=== PATIENT | male | born 1940 | race Asian ===

== ENCOUNTER 2023-09-11 09:24 | Emergency (ER) | payer MEDICARE, OTHER, SELFPAY ==
[2023-09-11 09:36] VITALS: BP 161/63
[2023-09-11 10:00] VITALS: BP 154/71
--- NOTE | 2023-09-11 10:05 | ED.GENMED ---
History of Present Illness
General
Chief Complaint: Breathing Problem
Source: patient
Time Seen by Provider: 09/11/23 09:57
Travel History
Have you had any contact with someone who has COVID-19?: Unable to Answer
Do you have any symptoms of coronavirus? Fever > 100 degrees, chills, cough, shortness of breath, sore throat, loss of taste or smell, muscle aches, or headache?: Unable to Answer
History of Present Illness
History of Present Illness:
82-year-old male has had fatigue prior to and since a cardiac cath done. Cath was apparently done for this reason and for a heart murmur. Patient is told that catheterization was unremarkable. Today patient had some shortness of breath in
addition to the unusual fatigue he has been getting. Shortness of breath is resolved. No unusual chest pain or pleuritic chest pain. No fever cough
Past History
Past History
ED Past Medical History: GERD, HTN, Valvular disease, Hypothyroidism and Other (Gastric tumor)
ED Past Surgical History: Other (Hernia, gastric tumor)
Social History
Tobacco: Non-smoker
Living: alone
Phy Exam
Physical Exam
Physical Exam:
GENERAL: Alert and oriented in no apparent distress
EYE: Orbits normal.
NECK: Supple, mild ecchymosis to the right neck extending to the right upper sternal area
ENT: Pharynx without erythema
CARDIAC: Regular rate and rhythm with moderate midsystolic murmur
LUNGS: Clear breath sounds,normal
ABDOMEN: Soft, without focal tenderness or distention
NEUROLOGICAL: Alert and oriented , grossly non-focal
SKIN: Warm and dry, no rash or lesion, no discoloration, skin intact.
MUSCULOSKELETAL: No edema,no deformity.Good color
PSYCH: Normal and appropriate interaction.
Scores
Heart Failure Risk
Heart Failure Risk Score: Not Applicable
Course
Orders/Labs/Results
Orders:
Orders
09/11/23 09:40
Electrocardiogram (*1) Urgent
Reason for Study: Shortness of Breath
09/11/23 09:41
EKG- Treatment ONCE
09/11/23 10:04
Cardiac Monitoring- Treatment ONCE
IV Insert/Care/Rem.- Treatment PRN
CR Chest - 2 Views Urgent
Comment:
Reason For Exam: sob
Pulse Ox/cont/shift [RESP] Stat
Quantity: 1
09/11/23 10:09
CMP [Comprehensive Metabolic Panel] Urgent
Complete Blood Count/With Diff Urgent
Free T4 Urgent
NT-proBNP Urgent
TSH Reflex To Free T4 Urgent
Comment: ADD ON
Troponin I Urgent
09/11/23 12:09
CT Chest Pe Study Urgent
Comment:
Reason For Exam: Shortness of breath. Recent cardiac cath
09/11/23 12:10
Add On- LAB Urgent
Tests Added?: tsh reflex t4
09/11/23 12:11
EKG- Treatment ONCE
09/11/23 13:00
Electrocardiogram (*1) Stat
Reason for Study: Other
Other Reason for Exam: chest pain
09/11/23 13:33
Troponin I Urgent
Abnormal Lab Results
09/11/23
10:09
RBC 3.63 L 10^6/uL
(4.70-6.10)
Hct 35.7 L %
(39.0-52.0)
MCV 98.3 H fL
(80.0-94.0)
MCH 36.6 H pg
(27.0-31.0)
MCHC 37.3 H g/dL
(33.0-37.0)
Abs Immat Gran (auto) 0.1 H 10^3/uL
(0-0.05)
Immature Gran % 1.0 H %
(0-0.5)
BUN 59 H mg/dl
(9-20)
Glucose 115 H mg/dl
(70-99)
TSH (Reflex) 0.21 L uIU/ml
(0.47-4.68)
09/11/23 10:09
09/11/23 10:09
Vital Signs
Initial and Last Documented VS:
Initial Vital Signs
Temp Pulse Resp BP Pulse Ox
98.7 F 86 18 161/63 95
09/11/23 09:36 09/11/23 09:36 09/11/23 09:36 09/11/23 09:36 09/11/23 09:36
Last Documented Vital Signs
Temp Pulse Resp BP Pulse Ox
98.7 F 81 18 155/91 97
09/11/23 09:36 09/11/23 15:43 09/11/23 15:43 09/11/23 15:43 09/11/23 15:43
MDM/Problems Addressed
Differential Diagnosis Includes:
Fatigue prior and after cardiac cath. Per the patient this was done for the heart murmur. However today he had some transient shortness of breath that is resolved. Nothing on exam except for the murmur. Lungs are clear no respiratory distress
pulse ox is good EKG is stable workup in progress. Attempting to get the cardiac cath report from [place]
*Pulse Oximetry
Patient hypoxic: no
*EKG
Interpreted by ED Provider?: Yes
Interpretation: abnormal
Comparison EKG: changes noted
Heart Rate: 85
Rate: normal
Rhythm: sinus
[place]: left axis deviation
Interval: normal interval
QRS Pattern: left vent hypertrophy
Ischemia: non-specific ST changes
*Critical Care Note
Total Time (30-74mins, 75-104mins- exclusive of procedures): Not Applicable
Data Reviewed
Review of Other/Old Records Reveals: Labs, Records and Testing
Update Note
Update Note:
Repeat EKG stable. Patient has remained stable and nontoxic. Awaiting for official CT reading. I did talk to patient's covering competitive intelligence analyst but he did not have the report. He unfortunately has not called back with this report. However given
patient's stability and apparent stable catheterization patient can be discharged to follow-up closely
ED Attending Note
-
Portions of this chart may have been created with voice recognition software.� Occasional wrong word or��sound alike� substitutions may have occurred due to the inherent limitations of voice recognition software.
Discharge Plan
Departure
Patient Disposition: Home (Routine Discharge)
Date of Disposition: 09/11/23
Time of Disposition: 15:20
Patient with high blood pressure during this ER visit?: Yes
Discharge Problem:
Fatigue/transient dyspnea, Valvular heart disease
Instructions: Fatigue (DC), Shortness of Breath (Dyspnea) (DC), BLOOD PRESSURE
Prescriptions:
No Action
losartan 100 mg Tablet
100 mg PO DAILY
hydrochlorothiazide 12.5 mg tablet
12.5 mg PO DAILY
levothyroxine 125 mcg capsule
125 mcg PO DAILY Qty: 30 0RF
Referrals:
UNKNOWN - PT DOES,NOT KNOW [Unknown Provider] -
Activity Restrictions/Additional Instructions:
Call your competitive intelligence analyst first thing tomorrow morning to let them know you are here
Please return sooner with any recurring shortness of breath chest pain progressive fatigue or any other unusual symptoms
Interventions
Interventions:
*Risk Screen - Suicide Last Done: 09/11/23 15:15
*Neglect/Abuse Screening Last Done: 09/11/23 09:38
*ED COVID-19 Vaccine History Last Done: 09/11/23 09:38
*Nursing Disposition Last Done: 09/11/23 15:46
ED- Cardiac Assessment Last Done: 09/11/23 09:47
ED- Pulmonary Assessment Last Done: 09/11/23 09:38
Discharge Date and Time
Discharge Date/Time: 09/11/23 15:46
[2023-09-11 10:17] LABS: % Basophils 0.8 % (0-2); % Eosinophils 4.2 % (0-6); % Monocytes 7.5 % (1.7-9.3); % Neutrophils 60.5 % (42.2-75.2); Absolute Eosinophils 0.2 10^3/uL (0-0.7); Absolute Immature Granulocytes 0.1 10^3/uL (0-0.05); Absolute Lymphocytes 1.4 10^3/uL (1.2-3.4); Absolute Monocytes 0.4 10^3/uL (0.1-0.6); Absolute Neutrophils 3.2 10^3/uL (1.4-6.5); Hematocrit 35.7 % (39.0-52.0); Hemoglobin 13.3 g/dL (13.0-18.0); Mean Corp Hgb Conc. 37.3 g/dL (33.0-37.0); Mean Corpuscular Hgb 36.6 pg (27.0-31.0); Mean Corpuscular Volume 98.3 fL (80.0-94.0); Mean Platelet Volume 8.3 fL (7.4-10.4); Nucleated Red Blood Cells % 0 % (-); Platelet Count 180 10^3/uL (130-400); Red Blood Cell Count 3.63 10^6/uL (4.70-6.10); Red Cell Dist. Width 11.9 % (11.5-14.5); White Blood Cell Count 5.2 10^3/uL (4.8-10.8)
[2023-09-11 10:31] LABS: ALT (SGPT) 32 U/L (0-50); AST (SGOT) 51 U/L (17-59); Albumin 4.1 g/dl (3.5-5.0); Alkaline Phosphatase 50 U/L (38-126); Blood Urea Nitrogen 59 mg/dl (9-20); Calcium 9.9 mg/dl (8.4-10.2); Carbon Dioxide 27 mmol/L (22-30); Chloride 102 mmol/L (98-107); Glucose 115 mg/dl (70-99); Potassium 4.5 mmol/L (3.5-5.1); Sodium 135 mmol/L (135-145); Total Bilirubin 0.7 mg/dl (0.2-1.3); Total Protein 7.2 g/dl (6.3-8.2); eGFR > 60.00
[2023-09-11 10:42] LABS: NT-proBNP 199 pg/ml; Troponin I < 0.012 ng/ml
[2023-09-11 10:55] VITALS: BP 159/69
[2023-09-11 11:00] VITALS: BP 159/75
[2023-09-11 14:06] LABS: Troponin I < 0.012 ng/ml
[2023-09-11 14:14] LABS: TSH Reflex To Free T4 0.21 uIU/ml (0.47-4.68)
[2023-09-11 14:44] LABS: Free T4 1.08 ng/dl (0.78-2.19)
[2023-09-11 15:43] VITALS: BP 155/91
== END 2023-09-11 15:46 | disposition home or self-care (01) ==
LOC: EMR 09:24
PROVIDERS: EMERGENCY PHYSICIAN Emergency Medicine; FAMILY PHYSICIAN Internal Medicine
DX: R53.83 Other fatigue (principal); R06.02 Shortness of breath; R06.00 Dyspnea, unspecified; R01.1 Cardiac murmur, unspecified
CPT/HCPCS: 99285; 71046; 71275; 80053; 83880; 84439; 84443; 84484; 85025; 93005; Q9967

== ENCOUNTER 2024-01-29 20:21 | Emergency (ER) | payer MEDICARE, SELFPAY ==
[2024-01-29 20:22] VITALS: BP 143/94; BMI 26.6
[2024-01-29 21:37] VITALS: BP 133/83
--- NOTE | 2024-01-29 21:41 | ED.GENMED ---
History of Present Illness
<NICOLE Medrano - Last Filed: 01/30/24 00:18>
General
Chief Complaint: Weakness
Time Seen by Provider: 01/29/24 22:02
History of Present Illness
History of Present Illness:
Patient is an 83 y/o male presenting due to SOB, nausea, vomiting, and generalized weakness. He states he was watching TV at 1400 when the symptoms started and they lasted about 2 hours. He states he began to get short of breath and diaphoretic and
then he vomited his lunch. He states the vomiting was non-bloody and nonbilious. He denies any similar symptoms in the past. He admits to some discomfort in both legs that started today. He states he feels it worse in the left and states it is
crampy. He states he had a knee replacement 1 month ago and a cardiac cath in 09/2023 due to a murmur. He states he drinks a half a glass of elsa daily. He denies smoking or drug use. He denies any symptoms currently. He denies any LENTZ, LOC, vision
changes, CP, abdominal pain, diarrhea, urinary symptoms.
Past History
<NICOLE Medrano - Last Filed: 01/30/24 00:18>
Past History
ED Past Medical History: GERD, HTN, Valvular disease, Hypothyroidism and Other (Gastric tumor)
ED Past Surgical History: Other (Hernia, gastric tumor)
Social History
Tobacco: Non-smoker
Living: alone
Phy Exam
<NICOLE Medrano - Last Filed: 01/30/24 00:18>
Physical Exam
Physical Exam:
Constitutional: Pt is AAOx3 in no acute distress.
Eyes: PERRLA
Skin: warm, dry, non-erythematous.
Cardio: Regular rate and rhythm. Systolic murmur loudest at right second intercostal space. No pain on palpation of the chest wall.
Pulm: CTA b/l. Unlabored breathing.
Abdomen: Soft, nontender, nondistended.
PV: 2+ dorsalis pedis and posterior tib pulses bilaterally. No peripheral edema. Negative Yesenia's sign.
Course
<Evaristo Sanderson [facility] - Last Filed: 01/30/24 00:18>
Orders/Labs/Results
Orders:
Orders
01/29/24 20:24
EKG [Electrocardiogram (*1)] Urgent
Reason for Study: Fatigue / Weakness
01/29/24 20:25
EKG- Treatment ONCE
01/29/24 21:35
CMP [Comprehensive Metabolic Panel] Urgent
Complete Blood Count/With Diff Urgent
01/29/24 22:17
0.9% Sodium Chloride 500 ml [Nss] 500 ml IV BOLUS
US Periph Venous LOWER Ext LT Urgent
Comment:
Reason For Exam: cramp/pain
01/29/24 22:21
Troponin I Urgent
01/30/24 01:20
Troponin I Urgent
Abnormal Lab Results
01/29/24
21:35
RBC 3.05 L 10^6/uL
(4.70-6.10)
Hgb 11.4 L g/dL
(13.0-18.0)
Hct 30.9 L %
(39.0-52.0)
MCV 101.3 H fL
(80.0-94.0)
MCH 37.4 H pg
(27.0-31.0)
Abs Immat Gran (auto) 0.1 H 10^3/uL
(0-0.05)
Immature Gran % 0.8 H %
(0-0.5)
Sodium 134 L mmol/L
(135-145)
BUN 39 H mg/dl
(9-20)
Creatinine 1.4 H mg/dL
(0.7-1.3)
Glucose 104 H mg/dl
(70-99)
01/29/24 21:35
01/29/24 21:35
Vital Signs
Initial and Last Documented VS:
Initial Vital Signs
Temp Pulse Resp BP Pulse Ox
98 F 74 16 143/94 99
01/29/24 20:22 01/29/24 20:22 01/29/24 20:22 01/29/24 20:22 01/29/24 20:22
Last Documented Vital Signs
Temp Pulse Resp BP Pulse Ox
98 F 72 19 150/77 100
01/29/24 20:22 01/29/24 23:45 01/29/24 23:45 01/29/24 22:00 01/29/24 22:47
<Bita Zamora MD - Last Filed: 01/30/24 00:24>
Orders/Labs/Results
Orders:
Orders
01/29/24 20:24
EKG [Electrocardiogram (*1)] Urgent
Reason for Study: Fatigue / Weakness
01/29/24 20:25
EKG- Treatment ONCE
01/29/24 21:35
CMP [Comprehensive Metabolic Panel] Urgent
Complete Blood Count/With Diff Urgent
01/29/24 22:17
0.9% Sodium Chloride 500 ml [Nss] 500 ml IV BOLUS
US Periph Venous LOWER Ext LT Urgent
Comment:
Reason For Exam: cramp/pain
01/29/24 22:21
Troponin I Urgent
01/30/24 01:20
Troponin I Urgent
Abnormal Lab Results
01/29/24
21:35
RBC 3.05 L 10^6/uL
(4.70-6.10)
Hgb 11.4 L g/dL
(13.0-18.0)
Hct 30.9 L %
(39.0-52.0)
MCV 101.3 H fL
(80.0-94.0)
MCH 37.4 H pg
(27.0-31.0)
Abs Immat Gran (auto) 0.1 H 10^3/uL
(0-0.05)
Immature Gran % 0.8 H %
(0-0.5)
Sodium 134 L mmol/L
(135-145)
BUN 39 H mg/dl
(9-20)
Creatinine 1.4 H mg/dL
(0.7-1.3)
Glucose 104 H mg/dl
(70-99)
01/29/24 21:35
01/29/24 21:35
Vital Signs
Initial and Last Documented VS:
Initial Vital Signs
Temp Pulse Resp BP Pulse Ox
98 F 74 16 143/94 99
01/29/24 20:22 01/29/24 20:22 01/29/24 20:22 01/29/24 20:22 01/29/24 20:22
Last Documented Vital Signs
Temp Pulse Resp BP Pulse Ox
98 F 72 19 150/77 100
01/29/24 20:22 01/29/24 23:45 01/29/24 23:45 01/29/24 22:00 01/29/24 22:47
<NICOLE Medrano - Last Filed: 01/30/24 00:18>
MDM/Problems Addressed
Differential Diagnosis Includes:
Differential diagnosis includes but not limited to dehydration, pulmonary embolism, AL, hypoglycemia.
<NICOLE Medrano - Last Filed: 01/30/24 00:18>
*Radiology
Radiology exam reviewed: radiology read reviewed (No evidence of deep venous thrombosis of the left lower extremity.)
*Pulse Oximetry
Patient hypoxic: no
*EKG
Interpreted by ED Provider?: Yes
EKG Intrepretation Date: 01/29/24
Interpretation: abnormal
Comparison EKG: changes noted (nonspecific T wave inversions laterally, were flattened with previous ECGs)
Heart Rate: 74
Rate: normal
Rhythm: sinus
[place]: normal axis
Interval: first degree heart block
QRS Pattern: left vent hypertrophy
Ischemia: no ischemia
*Hospital Nurse Liaison Interpretation
Rate: Hospital Nurse Liaison- N/A
*Critical Care Note
Total Time (30-74mins, 75-104mins- exclusive of procedures): Not Applicable
<NICOLE Medrano - Last Filed: 01/30/24 00:18>
Update Note
Update Note:
2330: Patient ate a meal and states he feels better. He has not current complaints.
<Bita Zamora MD - Last Filed: 01/30/24 00:24>
Update Note
Update Note:
2330: Patient ate a meal and states he feels better. He has not current complaints.
1223 aM--recommend to pt that we complete w/u with repeat trop, however he declines,w ants to go home now, asx...understands risks, that w/u incomplete, risks of serious inj etc.
ED Attending Note
<NICOLE Medrano - Last Filed: 01/30/24 00:18>
-
Portions of this chart may have been created with voice recognition software.� Occasional wrong word or��sound alike� substitutions may have occurred due to the inherent limitations of voice recognition software.
<Bita Zamora MD - Last Filed: 01/30/24 00:24>
ED Attending Note
Patient seen and examined by attending physician: Yes
I performed the substantive portion of visit, reviewed & personally made and approve the management plan that is documented in note by myself or ADIN.: Yes
ED Attending Note:
83-year-old male says he was feeling perfectly well until approximately 2 PM today when he started to feel nauseous followed by an episode of nonbloody vomiting, generalized weakness,' breathing not free'. He vomited just once but continued to feel
generally weak and slightly diaphoretic. With this, he noted mild cramping of his legs bilaterally, denies associated chest pain or pressure, abdominal pain, back pain, neck pain, headache, dizziness, or other complaints. Patient remains
asymptomatic and is very hungry. He is in bed watching TV and well-appearing. Symptoms lasted a few hours before resolving. On exam,
GENERAL: Alert , in no apparent distress
EYE: pupils equal and reactive
NECK: Supple, no significant adenopathy.
ENT: o/p clr, mmm.
CARDIAC: Regular rate and rhythm, loud systolic murmur heard loudest at left apex.
LUNGS: Clear breath sounds bilaterally, no acute respiratory distress, no wheezes/rales/rhonchi
ABDOMEN: Soft, without focal tenderness, no r/g, no cvat
NEUROLOGICAL: Alert and oriented, no focal neuro deficits
SKIN: Warm and dry, skin intact.
MUSCULOSKELETAL: No edema, well perfused.
PSYCH: Normal and appropriate interaction.
Patient presents to the Emergency Department with nausea vomiting weakness
Number and Complexity of Problems Addressed at the Encounter
� Chronic conditions affecting care:
� Acute Exacerbation and/or Progression of Chronic Illness:
� Differential Diagnosis includes: But not limited to dehydration, ACS, electrolyte disorder, etc. etc.
Amount and/or Complexity of Data to be Reviewed and Analyzed
� I performed an independent evaluation of and my interpretation is:
EKG: Read by me, normal sinus rhythm, normal rate, nonspecific T wave inversions laterally, were flattened with previous ECGs.
CT:
Xrays:
Laboratory Studies:
Other:
� Review of other/old records reveals: Patient had a history of a catheterization performed September of this year which was reportedly unremarkable.
� Clinical information was obtained by an independent historian:
� Prescriptions/Medications Considered but not given:
� Further testing considered but not performed:
Risk of Complications and/or Morbidity or Mortality of Patient Management
� Social determinants of health affecting care:
� Discussion with other providers (PCP, Hospitalists, Consultants, etc):
� Escalation of care including admission/observation vs risk of discharge considered:
Discharge Plan
Departure
Patient Disposition: Home (Routine Discharge)
Date of Disposition: 01/30/24
Time of Disposition: 00:23
Patient with high blood pressure during this ER visit?: Yes
Condition: Good
Discharge Problem:
weakness
Instructions: Generalized Weakness (DC), BLOOD PRESSURE
Prescriptions:
No Action
losartan 100 mg Tablet
100 mg PO DAILY
hydrochlorothiazide 12.5 mg tablet
12.5 mg PO DAILY
levothyroxine 125 mcg capsule
125 mcg PO DAILY Qty: 30 0RF
Referrals:
Deonte De Leon MD [Family Provider] - Follow up in 2-3 days
Activity Restrictions/Additional Instructions:
IF YOU DEVELOP DIZZINESS, CHEST PAIN, TROUBLE BREATHING, ABDOMINAL PAIN, REPEATED VOMITING, OR OTHER WORRISOME SIGNS, GO TO THE ER IMMEDIATELY!
Interventions
Interventions:
*Risk Screen - Suicide Last Done: 01/29/24 20:22
*Neglect/Abuse Screening Last Done: 01/29/24 20:22
ED- Fall Risk Assessment Last Done: 01/29/24 20:22
ED- Cardiac Assessment Last Done: 01/29/24 23:56
ED- Neurological Assessment Last Done: 01/29/24 23:56
ED- Pulmonary Assessment Last Done: 01/29/24 23:56
Discharge Date and Time
Print Language: ARMENIAN
[2024-01-29 21:43] LABS: % Basophils 0.6 % (0-2); % Eosinophils 3.8 % (0-6); % Immature Granulocytes 0.8 % (0-0.5); % Lymphocytes 25.6 % (20.5-51.1); % Monocytes 7.9 % (1.7-9.3); % Neutrophils 61.3 % (42.2-75.2); Absolute Eosinophils 0.2 10^3/uL (0-0.7); Absolute Immature Granulocytes 0.1 10^3/uL (0-0.05); Absolute Lymphocytes 1.6 10^3/uL (1.2-3.4); Absolute Monocytes 0.5 10^3/uL (0.1-0.6); Absolute Neutrophils 3.8 10^3/uL (1.4-6.5); Hematocrit 30.9 % (39.0-52.0); Hemoglobin 11.4 g/dL (13.0-18.0); Mean Corp Hgb Conc. 36.9 g/dL (33.0-37.0); Mean Corpuscular Hgb 37.4 pg (27.0-31.0); Mean Corpuscular Volume 101.3 fL (80.0-94.0); Mean Platelet Volume 8.3 fL (7.4-10.4); Nucleated Red Blood Cells % 0 % (-); Platelet Count 201 10^3/uL (130-400); Red Blood Cell Count 3.05 10^6/uL (4.70-6.10); Red Cell Dist. Width 12.7 % (11.5-14.5); White Blood Cell Count 6.2 10^3/uL (4.8-10.8)
[2024-01-29 21:56] LABS: ALT (SGPT) 38 U/L (0-50); AST (SGOT) 58 U/L (17-59); Albumin 4.2 g/dl (3.5-5.0); Alkaline Phosphatase 62 U/L (38-126); Blood Urea Nitrogen 39 mg/dl (9-20); Calcium 9.6 mg/dl (8.4-10.2); Carbon Dioxide 24 mmol/L (22-30); Chloride 104 mmol/L (98-107); Estimated Creatinine Clearance 35 ml/min; Glucose 104 mg/dl (70-99); Sodium 134 mmol/L (135-145); Total Bilirubin 0.4 mg/dl (0.2-1.3); Total Protein 7.3 g/dl (6.3-8.2); eGFR 49.87
[2024-01-29 22:00] VITALS: BP 150/77
[2024-01-29 22:50] LABS: Troponin I 0.013 ng/ml
[2024-01-29] MEDS: NSS 500 IV (23:06)
[2024-01-30 00:44] VITALS: BP 132/69
== END 2024-01-30 00:46 | disposition home or self-care (01) ==
LOC: EMR 20:21
PROVIDERS: EMERGENCY PHYSICIAN Emergency Medicine; FAMILY PHYSICIAN Internal Medicine
DX: R53.1 Weakness (principal); M79.605 Pain in left leg; I10 Essential (primary) hypertension
CPT/HCPCS: 99285; 96360; 80053; 84484; 85025; 93005; 93971